=== PATIENT | male | born 1965 | race Caucasian/White ===

== ENCOUNTER 2018-02-05 15:10 | Inpatient (IN) | payer OTHER ==
[~2018-02-05] VITALS: Ht 182.9 cm; Wt 81.5 kg
[2018-02-05 15:48] LABS: MEAN CORPUSCULAR HGB CONC 33.3 g/dL (33.2-36.2); PLATELET COUNT 289 x10^3/uL (130-400); RED BLOOD COUNT 4.97 x10^6/uL (4.38-5.82); RED CELL DISTRIBUTION WIDTH 15.9 % (9.4-14.8)
[2018-02-05 16:06] LABS: ALANINE AMINOTRANSFERASE 280 U/L (12-78); ALBUMIN 3.5 g/dL (3.4-5.0); ANION GAP 10 mmol/L (5-15); CALCIUM 9.7 mg/dL (8.5-10.1); CHLORIDE 100 mmol/L (98-107); CREATININE 1.04 mg/dL (0.7-1.3)
[2018-02-05 16:07] LABS: ALKALINE PHOSPHATASE 948 U/L (45-117); BILIRUBIN,TOTAL 9.4 mg/dL (0.2-1.0); TOTAL PROTEIN 7.7 g/dL (6.4-8.2)
[2018-02-05 16:08] LABS: ACETAMINOPHEN < 2 mcg/mL (10-30)
[2018-02-05 16:16] LABS: MD YES
[2018-02-05 16:18] LABS: EOS#(MANUAL) 0.11 x10^3/uL (0.0-0.4); EOS% (MANUAL) 1 % (1-7); LYMPH#(MANUAL) 1.76 x10^3/uL (1-3.4); LYMPHS% (MANUAL) 16 % (22-44); MONOS#(MANUAL) 0.99 x10^3/uL (0.3-2.7); MONOS% (MANUAL) 9 % (2-9); SEG#(MANUAL) 8.14 x10^3/uL (1.8-6.8); SEGS% (MANUAL) 74 % (42-75)
[2018-02-05 16:19] LABS: ANISOCYTOSIS 1+; TARGET CELLS 1+
[2018-02-05 16:20] LABS: <PLATELET ESTIMATE> ADEQUATE; <PLT MORPHOLOGY> NORMAL PLT MORPH
[2018-02-05 16:26] LABS: MICROSCOPIC NOT IND
[2018-02-05 16:28] LABS: CULTURE INDICATED? NO
[2018-02-05] MEDS ORDERED: SODIUM CHLORIDE FLUSH 10ML SYR IVF ONE (16:30)
[2018-02-05 16:43] LABS: ACETAMINOPHEN < 2 mcg/mL (10-30)
[2018-02-05 16:44] LABS: SALICYLATE LEVEL < 1.7 mg/dL (2.8-20.0)
[2018-02-05] MEDS ORDERED: ONDANSETRON 2MG/ML, 2ML IVPush ONE (17:00)
[2018-02-05] MEDS ORDERED: ONDANSETRON 2MG/ML, 2ML ONE (17:01)
[2018-02-05] MEDS ORDERED: MORPHINE SULFATE 4 MG/ML, 1ML ONE ×2 (17:02→18:45)
[2018-02-05] MEDS: MORPHINE SULFATE 4 MG/ML, 1ML IVPush PRN ×2 (17:08→18:47)
[2018-02-05] MEDS ORDERED: OMEG1CAP6 PO (17:17)
[2018-02-05] MEDS ORDERED: ASPI-515 PO (17:17)
[2018-02-05] MEDS ORDERED: VITA1TAB19 PO (17:17)
[2018-02-05] MEDS ORDERED: TURM538C PO (17:17)
[2018-02-05] MEDS ORDERED: GARL10002 PO (17:17)
[2018-02-05] MEDS ORDERED: MILK500C PO (17:17)
[2018-02-05] MEDS ORDERED: OMEP-110 PO (17:17)
[2018-02-05] MEDS ORDERED: CETI10CA PO (17:17)
[2018-02-05] MEDS ORDERED: OMNIPAQUE 350 MG/ML, 100ML BOTTLE ONE (17:49)
[2018-02-05 19:00] VITALS: BP 156/116
[2018-02-05] MEDS ORDERED: BISACODYL 10 MG SUPP PR PRN (20:30)
[2018-02-05] MEDS ORDERED: POLYETHYLENE GLYCOL 17 GM PACKET PO PRN (20:30)
[2018-02-05] MEDS ORDERED: NICOTINE 21 MG/24 HR PATCH.TD24 TD SCH (20:30)
[2018-02-05] MEDS ORDERED: HYDROmorphone 2 MG/ML, 1ML IVPush PRN (20:30)
[2018-02-05] MEDS ORDERED: ONDANSETRON 2MG/ML, 2ML IVPush PRN (20:30)
[2018-02-05] MEDS ORDERED: CETIRIZINE 10 MG TABLET PO PRN (20:30)
[2018-02-05] MEDS: SODIUM CHLORIDE FLUSH 10ML SYR IVF SCH (21:00)
[2018-02-05] MEDS: TEMAZEPAM 15 MG CAPSULE PO PRN (21:03)
[2018-02-05] MEDS: morphine SULFATE 10 MG/ML, 1ML IVPush PRN (22:38)
[2018-02-06 02:00] VITALS: BP 118/84
[2018-02-06] MEDS: morphine SULFATE 10 MG/ML, 1ML IVPush PRN ×4 (02:57→16:44)
[2018-02-06 04:51] LABS: MEAN CORPUSCULAR HEMOGLOBIN 30.7 pg (27.5-34.5); MEAN CORPUSCULAR HGB CONC 33.9 g/dL (33.2-36.2); MEAN CORPUSCULAR VOLUME 90.6 fL (81-97); MEAN PLATELET VOLUME 9.1 fL (7.4-10.4); PLATELET COUNT 264 x10^3/uL (130-400); RED BLOOD COUNT 4.41 x10^6/uL (4.38-5.82); RED CELL DISTRIBUTION WIDTH 15.9 % (9.4-14.8)
[2018-02-06 04:55] LABS: CHLORIDE 101 mmol/L (98-107)
[2018-02-06 05:02] LABS: ALANINE AMINOTRANSFERASE 248 U/L (12-78); ALBUMIN 3.1 g/dL (3.4-5.0); ALKALINE PHOSPHATASE 934 U/L (45-117); ANION GAP 8 mmol/L (5-15); BILIRUBIN,TOTAL 8.1 mg/dL (0.2-1.0); CALCIUM 8.8 mg/dL (8.5-10.1); TOTAL PROTEIN 7.2 g/dL (6.4-8.2)
[2018-02-06 05:54] LABS: MD YES
[2018-02-06 05:56] LABS: ANISOCYTOSIS 1+; BASOS% (MANUAL) 1 % (0-1); EOS#(MANUAL) 0.19 x10^3/uL (0.0-0.4); EOS% (MANUAL) 2 % (1-7); LYMPH#(MANUAL) 1.46 x10^3/uL (1-3.4); LYMPHS% (MANUAL) 15 % (22-44); MONOS#(MANUAL) 0.97 x10^3/uL (0.3-2.7); MONOS% (MANUAL) 10 % (2-9); SEG#(MANUAL) 6.98 x10^3/uL (1.8-6.8); SEGS% (MANUAL) 72 % (42-75)
[2018-02-06 05:57] LABS: <PLATELET ESTIMATE> ADEQUATE; <PLT MORPHOLOGY> NORMAL PLT MORPH
[2018-02-06 08:24] VITALS: BP 132/83
[2018-02-06 08:57] LABS: INTERNATIONAL NORMALIZED RATIO 0.98 (0.93-1.1); PROTHROMBIN TIME 10.2 Seconds (9.6-11.5)
[2018-02-06] MEDS: NICOTINE 21 MG/24 HR PATCH.TD24 TD SCH (09:00)
[2018-02-06] MEDS: SODIUM CHLORIDE FLUSH 10ML SYR IVF SCH ×2 (09:00→21:00)
[2018-02-06] MEDS ORDERED: FENTANYL PF 100 MCG/2ML ONE ×2 (13:34→13:35)
[2018-02-06] MEDS ORDERED: MIDAZOLAM 1 MG/ML, 5ML ONE ×2 (13:35)
[2018-02-06 14:50] VITALS: BP 101/68
[2018-02-06] MEDS: OMEPRAZOLE 20 MG CAPSULE.DR PO SCH (16:00)
[2018-02-06] MEDS: SENNA/DOCUSATE TABLET PO SCH (16:00)
[2018-02-06] MEDS: OXYcodone IR 5MG TABLET PO PRN ×2 (18:54→22:53)
[2018-02-06 20:31] VITALS: BP 113/74
[2018-02-06] MEDS: TEMAZEPAM 15 MG CAPSULE PO PRN (22:54)
[2018-02-07 03:21] VITALS: BP 116/80
[2018-02-07] MEDS: OXYcodone IR 5MG TABLET PO PRN ×3 (03:24→12:22)
[2018-02-07 07:29] LABS: ALANINE AMINOTRANSFERASE 248 U/L (12-78); ALBUMIN 3.4 g/dL (3.4-5.0); ANION GAP 6 mmol/L (5-15); CALCIUM 9.3 mg/dL (8.5-10.1); CHLORIDE 103 mmol/L (98-107); CREATININE 0.83 mg/dL (0.7-1.3)
[2018-02-07 07:31] LABS: ALKALINE PHOSPHATASE 903 U/L (45-117); TOTAL PROTEIN 7.4 g/dL (6.4-8.2)
[2018-02-07 07:57] VITALS: BP 115/78
[2018-02-07] MEDS: SODIUM CHLORIDE FLUSH 10ML SYR IVF SCH (08:31)
[2018-02-07] MEDS: OMEPRAZOLE 20 MG CAPSULE.DR PO SCH (08:31)
[2018-02-07] MEDS: SENNA/DOCUSATE TABLET PO SCH (08:31)
[2018-02-07] MEDS: NICOTINE 21 MG/24 HR PATCH.TD24 TD SCH (08:31)
[2018-02-07] MEDS ORDERED: OXYC5TAB3 PO (13:28)
[2018-02-07 13:43] VITALS: BP 119/81
== END 2018-02-07 15:26 | disposition home or self-care (01) | DRG 436 ==
LOC: ED 18:42 → 3NW 19:20
PROVIDERS: ADMIT Emergency Medicine; ATTEND Emergency Medicine
PROC: 0FB23ZX Excision of Left Lobe Liver, Percutaneous Approach, Diagnostic (ICD-10-PCS; principal; 2018-02-06)
DX: C78.7 Secondary malignant neoplasm of liver and intrahepatic bile duct (principal); C25.2 Malignant neoplasm of tail of pancreas; K72.90 Hepatic failure, unspecified without coma; K21.9 Gastro-esophageal reflux disease without esophagitis; F10.10 Alcohol abuse, uncomplicated; F17.210 Nicotine dependence, cigarettes, uncomplicated; L29.9 Pruritus, unspecified; K57.30 Diverticulosis of large intestine without perforation or abscess without bleeding; Z66 Do not resuscitate; Z80.0 Family history of malignant neoplasm of digestive organs; Z82.49 Family history of ischemic heart disease and other diseases of the circulatory system; Z85.07 Personal history of malignant neoplasm of pancreas; Z90.89 Acquired absence of other organs
CPT/HCPCS: 36415; 47000; 74177; 77012; 80053; 80307; 80329; 81003; 83605; 83690; 85025; 85610; 87040; 88307; 88341; 88342; 96374; 96375; 96376; 99156; 99157; J2250; J2405; J3010; Q9967; G0461; G0480; J2270